=== PATIENT | male | born 1960 | race Caucasian/White ===

== ENCOUNTER 2020-04-09 14:33 | Outpatient (CLI) | payer BC ==
[~2020-04-09 14:33] MED LIST: Iopamidol-370 76% 500 ML 1 ML ONE
--- NOTE | 2020-04-10 09:30 | CT ---
ABDOMINAL CT SCAN WITH AND WITHOUT IV CONTRAST: HISTORY: Followup left adrenal nodule. COMPARISON: Chest CT scan 03/22/2020. FINDINGS: There are some very subtle increased markings in the right middle lobe, possibly some chronic change or very minimal subsegmental atelectasis or very minute pneumonitis. There is no pleural effusion or pericardial effusion. Calcified granuloma in the liver. Small hypodensities in the liver up to 1 c m in size, evidence for probable small cysts, although they are too small to definitively characteriz e. A 2.1 cm diameter left adrenal nodule is an adenoma. There is a huge infrarenal abdominal aortic aneurysm approximately 8.5 cm in anterior posterior dimen verónica and 8.6 cm transversely and approximately 9 cm in overall length ending just at the bifurcation. There is no evidence for aneurysm leak or retroperitoneal fluid. No renal calculus or acute obs truction. IMPRESSION: 1. Very large lower abdominal aortic aneurysm. 2. Evidence for a left adrenal adenoma. 3. Several small liver hypodensities, statistically small cysts. Findings were discussed with Dr. Warren at 3:35 p.m. CODE CR POS: OFF
== END 2020-04-09 14:34 | disposition home or self-care (01) ==
LOC: BICCT 14:33 → MERGE 15:30
PROVIDERS: ATTEND Radiology Radiation Oncology
DX: C32.9 Malignant neoplasm of larynx, unspecified (principal); E27.8 Other specified disorders of adrenal gland; I71.4 Abdominal aortic aneurysm, without rupture; D35.02 Benign neoplasm of left adrenal gland; K76.89 Other specified diseases of liver
CPT/HCPCS: 74170; Q9967

== ENCOUNTER 2020-04-10 14:13 | Outpatient (CLI) | payer BC ==
--- NOTE | 2020-04-10 15:07 | CT ---
Exam: CT angiogram of the abdomen and pelvis HISTORY: Infrarenal abdominal aortic aneurysm COMPARISON: 04/09/2020 TECHNIQUE: CT angiogram of the abdomen is performed with IV contrast. Sagittal and coronal three dime nsional reformatted images are submitted for interpretation FINDINGS: Abdomen CT: Lung bases are clear HEART: Normal heart size No CT evidence of Ambrosio lithiasis or cholecystitis Appropriate arterial phase enhancement of the spleen, pancreas and right adrenal gland. There is a le ft adrenal nodule which as been better interrogation on the CT from 04/09/2020. Calcified granuloma in the right hepatic lobe. No abnormal enhancing masses Symmetric enhancement kidneys. Bilaterally no obstructive uropathy Visualized alimentary canal demonstrates no obstruction. Normal ileocecal junction. Normal caliber ap pendix. Diverticulosis is minimal. No diverticulitis No mesenteric mass, nephropathy, free air or free fluid Pelvic CT: No mass, adenopathy, free air or free fluid. Urinary bladder has a normal mucosa. Osseous structures: No lytic or blastic lesions CT ANGIOGRAM: The descending thoracic aorta, celiac artery origin, superior mesenteric artery origin, bilateral renal artery ostia have appropriate enhancement and luminal diameter. There is a small noncalcified plaque in the left renal artery ostium. The infrarenal abdominal aorta demonstrates aneu rysmal dilatation, measuring 8.4 cm anterior-posterior by 8.8 cm mediolateral by 10.7 cm anterior-posterior. The inferior mesenteric artery appears to opacify. There is eccentric thrombus wi th at least mild luminal narrowing. The aortic bifurcation and visualized iliac arteries have appropriate enhancement and luminal diameter. There is mass effect upon the inferior vena cava secondary to aneurysm. There does not appear to be any abnormal hyperdensities within the circumferential thrombus. Lack of contrast does limit evaluation. IMPRESSION: Markedly aneurysmal dilatation of the intrarenal abdominal aorta. Eccentric thrombus within associate d mild central canal stenosis. Transcribed Date/Time: 04/10/2020 3:18 PM
== END 2020-04-10 14:14 | disposition home or self-care (01) ==
LOC: CT 14:13
PROVIDERS: ATTEND Thoracic Surgery (Cardiothoracic Vascular Surgery)
DX: I71.4 Abdominal aortic aneurysm, without rupture (principal); I74.09 Other arterial embolism and thrombosis of abdominal aorta; I35.0 Nonrheumatic aortic (valve) stenosis
CPT/HCPCS: 74174

== ENCOUNTER 2020-04-11 10:45 | Inpatient (IN) | payer BC ==
[2020-04-11 13:21] LABS: Hemoglobin 13.2 g/dL (14.0-18.0); Mean Corpuscular HGB CONC 32.7 g/dL (32.0-36.0); Mean Corpuscular Hemoglobin 30.9 pg (27.0-31.0); Mean Corpuscular Volume 94.5 fL (78.0-98.0); Mean Platelet Volume 9.3 fL (7.4-10.4); Platelet Count 139 thou/uL (130-400); RBC Distribution Width 12.9 % (11.5-14.5); Red Blood Cell (RBC) Count 4.29 mill/uL (4.70-6.10); White Blood Cell (WBC) Count 5.3 thou/uL (4.8-10.8)
[2020-04-11 13:37] LABS: Anion Gap 13 mmol/L (10-20); BUN (Urea Nitrogen) 13 mg/dL (8.4-25.7); Calc. Creatinine Clearance 0 mL/min (70-130); Calcium 8.6 mg/dL (7.8-10.44); Carbon Dioxide 25 mmol/L (22-29); Chloride 105 mmol/L (98-107); Estimated GFR-MDRD Greater than 90; Glucose 116 mg/dL (70-105); Potassium 4.2 mmol/L (3.5-5.1); Sodium 139 mmol/L (136-145)
[2020-04-12 15:57] LABS: SARS-CoV-2 MS2 Positive; SARS-CoV-2 N Gene Negative; SARS-CoV-2 S Gene Negative; SARS-CoV-2 by NAA Not Detected (NotDetected); SARS-CoV-2 orf1ab Negative
[2020-04-14] MEDS ORDERED: Heparin 10,000 UNITS/ 10 ML VIAL ONE (06:33)
[2020-04-14] MEDS ORDERED: Protamine Sulfate 50 MG/5 ML VIAL ONE ×3 (06:33→09:17)
[2020-04-14] MEDS ORDERED: Fentanyl 100 MCG/2 ML VIAL ONE ×5 (06:36→15:32)
[2020-04-14] MEDS ORDERED: Midazolam HCl 2 mg/2 ml Vial ONE ×2 (06:36→07:42)
[2020-04-14] MEDS ORDERED: Phenylephrine 10 MG/ML VIAL ONE (06:37)
[2020-04-14] MEDS ORDERED: Nitroglycerin 50 MG/250 ML BOT 250 ML ONE ×2 (06:39→14:38)
[2020-04-14] MEDS ORDERED: Famotidine/PF 20 mg/2ml Vial ONE (06:56)
[2020-04-14] MEDS ORDERED: Ketamine 50 MG/ML (10ML VIAL) ONE (09:35)
[2020-04-14] MEDS ORDERED: Labetalol HCl 100 MG/20 ML VIAL ONE (10:13)
[2020-04-14] MEDS ORDERED: hydrALAZINE 20 MG/ML VIAL ONE (10:23)
--- NOTE | 2020-04-14 11:09 | OP ---
DATE OF PROCEDURE: 04/14/2020 PREOPERATIVE DIAGNOSIS: Abdominal aortic aneurysm. POSTOPERATIVE DIAGNOSIS: Abdominal aortic aneurysm. PROCEDURES PERFORMED: 1. Bilateral ultrasound-guided femoral artery access. 2. Bilateral pre-close technique for large femoral sheath of the femoral arteries. 3. Abdominal aortogram with pelvic runoff. 4. Endovascular aneurysm repair with a main body left Endurant II system 26 x 16 x 145, left iliac extension 16 x 16 x 82, right iliac extension 16 x 20 x 124. TOTAL CONTRAST: 62 mL. TOTAL FLUORO TIME: 13 minutes. ESTIMATED BLOOD LOSS: Minimal. DESK DIRECTOR: Dr. Velásquez. ANESTHESIA: General endotracheal, Dr. Nghia Paige. DESCRIPTION OF PROCEDURE: After consent was obtained, the patient was brought to the operating room, placed in supine position on the operating table. Appropriate central line and monitors were placed and general endotracheal anesthesia was induced. Groins were prepped and draped in usual sterile fashion. Using ultrasound guidance, the femoral artery was accessed with micropuncture needle and wire. This was upsized to a 6-Stateless sheath over Bentson wire. The ProGlides were placed x2 bilaterally, tagged, and covered. Heparin [id number] Units was administered IV Sheath was upsized to an 11-Stateless sheath. On the right, the pigtail catheter was passed in the upper abdominal aorta. On the left, one Lunderquist wire was passed into the upper abdominal aorta. The abdominal aortogram was performed. The renal arteries were localized. We selected the 25 x 16 x 145 main body graft. This was passed over the Lunderquist wire, seated at the renal arteries, and deployed down to the bifurcation. Using angled Isac catheter and Bentson guidewire, the gate was cannulated. The wire was passed into the upper abdominal aorta. Pigtail catheter was passed over the wire and was twirled within the graft and it twirled easily. Wire was exchanged for a Lunderquist wire. A right iliac extension of 16 x 20 x 124 was selected after iliac angiogram was performed. This was deployed and seated just proximal to the iliac bifurcation. On the left, a 16 x 16 x 82 extension was selected and deployed. The full length of the graft was seated with Reliant balloons. Followup angiogram showed excellent result with no type 2 or 3 endoleak. There was good flow into the iliac arteries. Protamine was administered. The ProGlides were closed and the hemostasis was ensured in the groins. Dermabond was applied to the skin and sterile dressings applied. On awakening from anesthesia, the patient had some pretty significant anxiety and coughing. He had to be put back under general anesthesia and slowly awakened from propofol, which was much smoother the second time. The patient was transferred to the recovery room in stable condition. Job ID: [id number] MTDD
[2020-04-14] MEDS ORDERED: Succinylcholine Chloride 20 MG/ML 10 ml SYRINGE FS ONE (11:11)
[2020-04-14] MEDS ORDERED: Ondansetron PF 4 MG/2 ML Vial ONE (11:11)
[2020-04-14] MEDS ORDERED: Rocuronium Bromide 10 MG/ML (10ML VIAL) ONE (11:11)
[2020-04-14] MEDS ORDERED: PROPOFOL 200 MG/20 ML VIAL ONE (11:11)
[2020-04-14] MEDS ORDERED: Nitroglycerin 50 MG/250 ML BOT 250 ML IVPB SCH (11:30)
[2020-04-14] MEDS ORDERED: Ondansetron HCl/PF 4 MG/2 ML Vial IVP PRN (12:13)
[2020-04-14] MEDS ORDERED: Non-Formulary Medication 1 EACH PO PRN (12:13)
[2020-04-14] MEDS ORDERED: Promethazine HCl 25 MG/ML VIAL IM/IV PRN (12:13)
[2020-04-14] MEDS ORDERED: Fentanyl 100 MCG/2 ML VIAL SLOW IVP PRN (13:26)
[2020-04-14] MEDS ORDERED: Promethazine HCl 25 MG/ML VIAL IM PRN (13:26)
[2020-04-14] MEDS ORDERED: hydrALAZINE 20 MG/ML VIAL SLOW IVP PRN (13:26)
[2020-04-14] MEDS ORDERED: Ondansetron PF 4 MG/2 ML Vial IVP PRN (13:26)
[2020-04-14] MEDS ORDERED: Acetaminophen 325 MG TAB PO PRN (13:26)
[2020-04-14] MEDS: CEFAZOLIN 2 GM in Premix Bag 1 BAG IVPB SCH ×2 (17:27→21:17)
[2020-04-14 17:31] VITALS: BMI 39.4
[2020-04-15 04:30] LABS: Anion Gap 14 mmol/L (10-20); BUN (Urea Nitrogen) 10 mg/dL (8.4-25.7); Calc. Creatinine Clearance 218 mL/min (70-130); Calcium 8.1 mg/dL (7.8-10.44); Carbon Dioxide 24 mmol/L (22-29); Chloride 103 mmol/L (98-107); Estimated GFR-MDRD Greater than 90; Glucose 128 mg/dL (70-105); Potassium 3.7 mmol/L (3.5-5.1); Sodium 137 mmol/L (136-145)
[2020-04-15] MEDS: CEFAZOLIN 2 GM in Premix Bag 1 BAG IVPB SCH (05:45)
[2020-04-15 05:53] LABS: #Eosinphils 0.1 thou/uL (0.0-0.7); #Lymphocytes 1.2 thou/uL (1.20-3.40); #Monocytes 1.1 thou/uL (0.11-0.59); #Neutrophils 5.9 thou/uL (1.40-6.50); %Basophils 0.4 % (0.0-1.0); %Eosinophils 0.6 % (0.0-10.0); %Lymphocytes 14.2 % (21.0-51.0); %Monocytes 13.5 % (0.0-10.0); %Neutrophils 71.3 % (42.0-75.0); Hemoglobin 11.5 g/dL (14.0-18.0); Mean Corpuscular HGB CONC 33.3 g/dL (32.0-36.0); Mean Corpuscular Hemoglobin 31.2 pg (27.0-31.0); Mean Corpuscular Volume 93.8 fL (78.0-98.0); Mean Platelet Volume 9.4 fL (7.4-10.4); Platelet Count 103 thou/uL (130-400); RBC Distribution Width 13.2 % (11.5-14.5); Red Blood Cell (RBC) Count 3.68 mill/uL (4.70-6.10); White Blood Cell (WBC) Count 8.2 thou/uL (4.8-10.8)
--- NOTE | 2020-04-15 06:56 | DIS ---
DATE OF ADMISSION: 04/14/2020 DATE OF DISCHARGE: 04/15/2020 DIAGNOSIS: Abdominal aortic aneurysm. PROCEDURE: Endovascular abdominal aortic aneurysm repair. DESCRIPTION OF HOSPITAL STAY: Mr. Baumann was brought in for elective endovascular repair. He has done well postoperatively. He has his #6 cuffless tracheostomy tube back in place. His creatinine is 0.66. He is being discharged to home today. He will follow up with his radiation oncologist for initiation of treatment of his laryngeal cancer. Job ID: [id number]
[2020-04-15 07:22] VITALS: TEMP 98.6
== END 2020-04-15 08:00 | disposition home or self-care (01) | DRG 269 ==
LOC: SURG A 04-14 05:55 → CCU 04-14 17:10
PROVIDERS: ADMIT Thoracic Surgery (Cardiothoracic Vascular Surgery); ATTEND Thoracic Surgery (Cardiothoracic Vascular Surgery)
PROC: 04V03DZ Restriction of Abdominal Aorta with Intraluminal Device, Percutaneous Approach (ICD-10-PCS; principal; 2020-04-04)
DX: I71.4 Abdominal aortic aneurysm, without rupture (principal); I10 Essential (primary) hypertension; E78.5 Hyperlipidemia, unspecified; Z93.0 Tracheostomy status; Z98.890 Other specified postprocedural states; Z87.891 Personal history of nicotine dependence
CPT/HCPCS: 36415; 76000; 77300; 77301; 77338; 80048; 85025; 85027; 86850; 86900; 86901; 87635; C1894; J0360; J0690; J1644; J2250; J2370; J2405; J2704; J2720; J3010; S0028; U0003

== ENCOUNTER 2020-12-08 10:23 | Outpatient (CLI) | payer BC ==
[2020-12-08 10:59] LABS: Estimated GFR-MDRD - POC Greater than 90
== END 2020-12-08 10:24 | disposition home or self-care (01) ==
LOC: BICCT 10:23
PROVIDERS: ATTEND Thoracic Surgery (Cardiothoracic Vascular Surgery)
DX: I71.4 Abdominal aortic aneurysm, without rupture (principal); E27.8 Other specified disorders of adrenal gland
CPT/HCPCS: 74174; 82565

== ENCOUNTER 2021-07-15 10:05 | Outpatient (CLI) | payer BC ==
[~2021-07-15 10:05] MED LIST changes: +Iopamidol 370 76% 100 ML VIAL ONE; -Iopamidol-370 76% 500 ML 1 ML ONE
== END 2021-07-15 10:06 | disposition home or self-care (01) ==
LOC: BICCT 10:05
PROVIDERS: ATTEND Thoracic Surgery (Cardiothoracic Vascular Surgery)
DX: I71.4 Abdominal aortic aneurysm, without rupture (principal)
CPT/HCPCS: 75635; 82565; Q9967

== ENCOUNTER 2021-10-12 07:22 | Inpatient (IN) | payer BC ==
[2021-10-12] MEDS ORDERED: Morphine 4 MG/ML VIAL ONE ×3 (07:52→10:03)
[2021-10-12 08:00] LABS: #Eosinphils 0.1 thou/uL (0.0-0.7); #Monocytes 0.6 thou/uL (0.11-0.59); #Neutrophils 6.2 thou/uL (1.40-6.50); %Basophils 0.5 % (0.0-1.0); %Lymphocytes 12.4 % (21.0-51.0); %Neutrophils 79.1 % (42.0-75.0); Hemoglobin 14.7 g/dL (14.0-18.0); Mean Corpuscular HGB CONC 33.2 g/dL (32.0-36.0); Mean Corpuscular Hemoglobin 32.7 pg (27.0-31.0); Mean Corpuscular Volume 98.6 fL (78.0-98.0); Mean Platelet Volume 7.1 fL (7.4-10.4); Platelet Count 162 thou/uL (130-400); RBC Distribution Width 12.8 % (11.5-14.5); White Blood Cell (WBC) Count 7.8 thou/uL (4.8-10.8)
[2021-10-12 08:08] LABS: Prothrombin Time 13.7 sec (12.0-14.7)
[2021-10-12 08:10] LABS: PTT 36.3 sec (22.9-36.1)
[2021-10-12 08:16] LABS: ALT (SGPT) 33 U/L (8-55); AST (SGOT) 24 U/L (5-34); Albumin 4.8 g/dL (3.4-4.8); Alkaline Phosphatase 78 U/L (40-110); Anion Gap 15 mmol/L (10-20); BUN (Urea Nitrogen) 19 mg/dL (8.4-25.7); Bilirubin, Total 0.6 mg/dL (0.2-1.2); Calc. Creatinine Clearance 0 mL/min (70-130); Calcium 9.6 mg/dL (7.8-10.44); Carbon Dioxide 25 mmol/L (23-31); Chloride 103 mmol/L (98-107); Globulin 2.7 g/dL (2.4-3.5); Glucose 143 mg/dL (80-115); Potassium 3.6 mmol/L (3.5-5.1); Protein, Total 7.5 g/dL (5.8-8.1); Sodium 139 mmol/L (136-145)
[2021-10-12] MEDS ORDERED: Heparin 10,000 UNITS/ 10 ML VIAL ONE (09:41)
[2021-10-12] MEDS ORDERED: Protamine Sulfate 50 MG/5 ML VIAL ONE (09:47)
[2021-10-12] MEDS ORDERED: Heparin 5,000 UNITS/ML VIAL ONE (09:47)
[2021-10-12] MEDS ORDERED: Fentanyl 250 MCG/5 ML VIAL ONE ×3 (09:48→13:40)
[2021-10-12] MEDS ORDERED: Famotidine/PF 20 mg/2ml Vial ONE (09:48)
[2021-10-12] MEDS ORDERED: Phenylephrine 10 MG/ML VIAL ONE (10:27)
[2021-10-12] MEDS ORDERED: Norepinephrine 4 MG/4 ML VIAL ONE (10:27)
[2021-10-12] MEDS ORDERED: PROPOFOL 200 MG/20 ML VIAL ONE (10:37)
[2021-10-12] MEDS ORDERED: PHENYLEPHRINE-NS 100 MCG/ML 10 ML SYRINGE ONE (10:37)
[2021-10-12] MEDS ORDERED: Dexamethasone 20 MG/5 ML VIAL ONE (10:37)
[2021-10-12] MEDS ORDERED: Rocuronium Bromide 10 MG/ML (10ML VIAL) ONE (10:37)
[2021-10-12] MEDS ORDERED: Ondansetron PF 4 MG/2 ML Vial ONE (10:37)
[2021-10-12] MEDS ORDERED: Ketorolac Tromethamine 30 MG/ML VIAL ONE (10:37)
[2021-10-12] MEDS ORDERED: Lidocaine 1% PF 5 ML VIAL ONE (10:37)
[2021-10-12] MEDS ORDERED: Succinylcholine 200 MG/10 ml SYRINGE FS ONE (10:37)
[2021-10-12] MEDS ORDERED: SUGAMMADEX SODIUM 200 MG/2 ML VIAL ONE (11:40)
[2021-10-12] MEDS ORDERED: HYDROmorphone 2 MG/ML VIAL SLOW IVP PRN (11:41)
[2021-10-12] MEDS ORDERED: Promethazine HCl 25 MG/ML VIAL IM PRN ×2 (11:41→13:22)
[2021-10-12] MEDS ORDERED: Promethazine HCl 25 MG/ML VIAL IVPB PRN (11:41)
[2021-10-12] MEDS ORDERED: Meperidine HCl/PF 25 MG/ML VIAL SLOW IVP PRN (11:41)
[2021-10-12] MEDS ORDERED: Sodium Chloride 0.9% 1,000 ML IV SCH (13:22)
[2021-10-12] MEDS ORDERED: Fentanyl 100 MCG/2 ML VIAL SLOW IVP PRN ×2 (13:22)
[2021-10-12] MEDS ORDERED: Acetaminophen 325 MG TAB PO PRN (13:22)
[2021-10-12] MEDS ORDERED: HYDROcodone/Acetaminophen 5/325 mg Tablet PO PRN (13:22)
[2021-10-12] MEDS ORDERED: Ondansetron PF 4 MG/2 ML Vial IVP PRN (13:22)
[2021-10-12] MEDS ORDERED: Promethazine HCl 25 MG SUPP PR PRN (13:31)
[2021-10-12] MEDS ORDERED: HYDROmorphone 2 MG/ML VIAL ONE (14:45)
[2021-10-12 15:26] LABS: SARS-CoV-2 NAA Rapid Test Not Detected (NotDetected)
[2021-10-12] MEDS ORDERED: Losartan 25 MG TAB PO SCH (15:30)
[2021-10-12 17:50] VITALS: BMI 43.4
[2021-10-12] MEDS ORDERED: hydrALAZINE 20 MG/ML VIAL SLOW IVP PRN (18:39)
[2021-10-12] MEDS ORDERED: Amlodipine 5 MG TAB PO SCH (18:45)
[2021-10-12] MEDS: CEFAZOLIN 2 GM, Admixture Fee 1 EACH in Sodium Chloride 0.9% 100 ML IVPB SCH (19:23)
[2021-10-12] MEDS ORDERED: Enoxaparin Sodium 80 MG/0.8 ML SYRINGE SC SCH (21:00)
[2021-10-12] MEDS ORDERED: Rosuvastatin 20 MG TAB PO SCH (21:00)
[2021-10-12] MEDS: HYDROcodone/Acetaminophen 5/325 mg Tablet PO PRN (21:15)
[2021-10-13] MEDS: CEFAZOLIN 2 GM, Admixture Fee 1 EACH in Sodium Chloride 0.9% 100 ML IVPB SCH (03:46)
[2021-10-13] MEDS: HYDROcodone/Acetaminophen 5/325 mg Tablet PO PRN (05:49)
[2021-10-13 07:49] VITALS: BP 159/72; TEMP 97.8
[2021-10-13] MEDS ORDERED: Apixaban 5 MG TAB PO SCH (09:00)
[2021-10-13] MEDS ORDERED: Aspirin Chewable 81 MG TAB PO SCH (09:00)
[2021-10-13] MEDS ORDERED: Losartan 25 MG TAB PO SCH ×2 (09:00)
[2021-10-13] MEDS ORDERED: Polyethylene Glycol 3350 17 GM Packet PO SCH (09:00)
== END 2021-10-13 09:38 | disposition home or self-care (01) | DRG 253 ==
LOC: ERS 07:22 → ERHOLD 13:22 → 2NO 16:35
PROVIDERS: ADMIT Thoracic Surgery (Cardiothoracic Vascular Surgery); ATTEND Thoracic Surgery (Cardiothoracic Vascular Surgery)
PROC: 04CL0ZZ Extirpation of Matter from Left Femoral Artery, Open Approach (ICD-10-PCS; principal; 2021-10-12)
PROC: 04CN0ZZ Extirpation of Matter from Left Popliteal Artery, Open Approach (ICD-10-PCS; 2021-10-12)
PROC: 04CS0ZZ Extirpation of Matter from Left Posterior Tibial Artery, Open Approach (ICD-10-PCS; 2021-10-12)
PROC: 04U Lower Arteries, Supplement (ICD-10-PCS; 2021-10-12)
PROC: 04U Lower Arteries, Supplement (ICD-10-PCS; 2021-10-12)
DX: I70.202 Unspecified atherosclerosis of native arteries of extremities, left leg (principal); I74.3 Embolism and thrombosis of arteries of the lower extremities; I10 Essential (primary) hypertension; Z20.822 Contact with and (suspected) exposure to COVID-19; E78.5 Hyperlipidemia, unspecified; Z85.21 Personal history of malignant neoplasm of larynx; Z92.21 Personal history of antineoplastic chemotherapy; Z98.890 Other specified postprocedural states; Z79.82 Long term (current) use of aspirin
CPT/HCPCS: 75635; 80053; 85025; 85610; 85730; 88304; 93005; 96374; 96375; 96376; C1776; J0690; J1100; J1170; J1644; J1650; J1885; J2270; J2370; J2405; J2704; J2720; J3010; J3490; J7050; S0028; U0002